=== PATIENT | female | born 1985 | race Caucasian/White ===

== ENCOUNTER 2020-03-28 12:06 | Inpatient (IN) ==
[2020-03-28] MEDS ORDERED: Lactated Ringers 1000 ml BAG 1,000 ML IV ONE (13:26)
[2020-03-28] MEDS ORDERED: Buffered Lidocaine 1% SYRIN 1 ml INTRADERM ONE (13:26)
[2020-03-28 14:52] LABS: Urine Benzodiazepine Screen None Detected (None Detect); Urine Cannabinoids Screen None Detected (None Detect); Urine Opiates Screen None Detected (None Detect)
[2020-03-29] MEDS ORDERED: OBEPIDURAL 250 ML EPIDURAL ONE ×2 (06:20→07:07)
[2020-03-29] MEDS: Lactated Ringers 1000 ml BAG 1,000 ML IV SCH ×2 (06:49→08:27)
[2020-03-29 06:54] LABS: ABS Monocytes 0.7 10^3/ul (0-0.8); ABS Neutrophils 12.7 10^3/ul (1.5-7.7); Eosinophil % 0.1 %; Hematocrit 39 % (35-47); Hemoglobin 13.3 g/dL (12.0-16.0); Lymphocyte % 7.2 %; Mean Corpuscular HGB Conc 34 g/dL (31-36); Mean Corpuscular Hemoglobin 31 pg (27-31); Mean Corpuscular Volume 93 fL (80-97); Mean Platelet Volume 9.4 fL (7.4-10.4); Platelet Count 164 10^3/uL (150-450); Red Blood Count 4.22 10^6 /uL (3.70-4.87); Red Cell Distribution Width 14 % (10-15); White Blood Count 14.5 10^3/uL (3.5-10.8)
[2020-03-29] MEDS ORDERED: Bupivacaine 0.25% SDV PF 10 ML VIAL INJ ONE (07:17)
[2020-03-29] MEDS ORDERED: Ondansetron 4 mg VIAL 2 MG/ML 2 ml VIAL IV ONE (08:19)
[2020-03-29] MEDS ORDERED: Lactated Ringers 1000 ml BAG 1,000 ML IV ONE (08:25)
[2020-03-29] MEDS ORDERED: EPHEDrine (Pressors) 50 MG/ML VIAL IV PUSH PRN ×2 (08:25)
[2020-03-29] MEDS ORDERED: Sodium Citrate/Citric Acid LIQ 15 ML UDC PO PRN (08:25)
[2020-03-29] MEDS ORDERED: Phenylephrine 40 mcg/mL 10mL (400mcg) SYRINGE IV PUSH PRN ×2 (08:25)
[2020-03-29] MEDS ORDERED: Lactated Ringers 1000 ml BAG 500 ML IV PRN ×2 (08:25)
[2020-03-29] MEDS ORDERED: Oxytocin in LR 20 UNITS/1,000 ML BAG IVPB SCH ×2 (09:00→18:00)
[2020-03-29] MEDS ORDERED: Lactated Ringers 1000 ml BAG 1,000 ML IV SCH (09:00)
[2020-03-29] MEDS ORDERED: OBEPIDURAL 250 ML EPIDURAL SCH (09:00)
[2020-03-29] MEDS ORDERED: ceFOXitin 2 GM IVPREMIX 2 GM/50 ML BAG IVPB ONE (17:05)
[2020-03-29] MEDS ORDERED: Glycerin ADULT 2.4 gm SUPP PR PRN (17:06)
[2020-03-29] MEDS ORDERED: Dibucaine 1% OINT 28.35 GM TUBE PR PRN (17:06)
[2020-03-29] MEDS: Witch Hazel PAD JAR TOPICAL PRN (20:59)
[2020-03-30] MEDS ORDERED: Phenylephrine 40 mcg/mL 10mL (400mcg) SYRINGE ONE (06:57)
[2020-03-30 07:17] LABS: ABS Lymphocytes 1.6 10^3/ul (1.0-4.8); ABS Monocytes 0.6 10^3/ul (0-0.8); ABS Neutrophils 7.9 10^3/ul (1.5-7.7); Eosinophil % 0.3 %; Hematocrit 28 % (35-47); Hemoglobin 9.6 g/dL (12.0-16.0); Mean Corpuscular HGB Conc 35 g/dL (31-36); Mean Corpuscular Hemoglobin 32 pg (27-31); Mean Corpuscular Volume 93 fL (80-97); Mean Platelet Volume 8.8 fL (7.4-10.4); Platelet Count 149 10^3/uL (150-450); Red Blood Count 2.98 10^6 /uL (3.70-4.87); Red Cell Distribution Width 14 % (10-15); White Blood Count 10.2 10^3/uL (3.5-10.8)
[2020-03-30] MEDS ORDERED: Tetan/Diph/Pertus SYR(Tdap) 0.5 ML SYR(BOOSTRIX) use SYR contains LATEX IM ONE (09:00)
[2020-03-30] MEDS: Mineral Oil Sterile, TOPICAL 25 ML BTL TOPICAL SCH (11:47)
[2020-03-31] MEDS: Mineral Oil Sterile, TOPICAL 25 ML BTL TOPICAL SCH ×2 (07:55→09:00)
[2020-03-31 08:26] VITALS: BP 96/66
[2020-03-31] MEDS: Witch Hazel PAD JAR TOPICAL PRN (11:29)
== END 2020-03-31 14:07 | disposition home or self-care (01) | DRG 560 ==
LOC: MCHOBOUT 12:06 → MCHOB 13:10
PROVIDERS: ADMIT Midwife; ATTEND Advanced Practice Midwife